=== PATIENT | female | born 1950 | race Caucasian/White ===

== ENCOUNTER 2025-05-17 09:26 | Outpatient (AMB) | payer BC, SELFPAY ==
--- NOTE | 2025-05-17 09:38 | A.OFFPC_ITS ---
Vital Signs 05/17/25 09:39 Height 5 ft 4 in Weight 168 lb 2 oz BMI 28.9 BP 124/76 Blood Pressure Location Lt brachial Position Sitting Respiration 16 Pulse 71 Pulse Source Pulse Oximeter Temp 97.3 F Temp Source Temporal Artery Scan Pulse Oximetry (%) 97 Oxygen Delivery Method Room Air Intake Visit Reasons: follow liver care, reestablish care Pitch Filler Required: No Accompanied by: Self / Same As Patient Allergies alendronate sodium Adverse Reaction (Severe, Verified 05/17/25 09:38) severe transaminitis Medication List - Last Reconciled 05/17/25 by Darlene Gold MD amoxicillin 2,000 mg PO ONCE aspirin (Adult Low Dose Aspirin) 81 mg PO DAILY doxycycline hyclate 20 mg PO BID estradiol 0.01%(0.1mg/gram) 1 g vaginal 2XW lisinopril 10 mg PO DAILY loteprednol etabonate 0.25% 2 drps ophthalmic (eye) QID jiucfmnk-vfp-kvfz-FA-vit K-lut 4 mg iron-200 mcg-25 mcg (Centrum Minis Women 50 Plus) tabs PO Tobacco use date assessed: 05/17/25 Fall risk assessment: 1 Fall in past year Last assessed Fall Risk: 05/17/25 Dental Screening Dental Screen Date: 05/17/25 Did you have a dental visit in the last 12 months?: Yes Did you have a dental problem in the last 6 months where you did not have access to dental care?: No Was dental information given to patient?: Patient has dentist HPI HPI Comments History of Present Illness Details The patient is a 75 year old female presenting to [facility]. Elevated liver enzymes: The patient has a history of elevated liver enzymes, which were normalizing at her last visit. This was attributed to a alendronate use. The patient was also on atorvastatin which was held during this period. She is scheduled for a follow-up with her farm labor contractor SHANNA Duran at [facility] this week. Hypertension: The patient has a history of hypertension. She currently takes lisinopril 10 mg daily (two 5 mg tablets). She reports not monitoring her blood pressure regularly at home. She has seen [facility] cardiology in the past for HTN and mild CAD. Blepharitis: The patient reports a history of blepharitis, which began with itchy eyes. She is currently taking low-dose doxycycline 20 mg as prescribed by her display trimmer to suppress it. History of Basal Cell Carcinoma: The patient reports having a basal cell carcinoma removed from her left outer leg by a terry cloth cutter hand. 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 Coronary artery disease Generalized anxiety disorder Transaminitis Primary hypertension Surgical History (Updated 05/17/25 @ 07:57 by Darlene Gold MD) S/P hip replacement H/O dilation and curettage H/O varicose vein procedure Hx of tonsillectomy History of colonoscopy (~10/04/23) Family History (Updated 05/17/25 @ 07:54 by Darlene Gold MD) Other Osteoporosis Social History Housing: House Patient Tobacco Use Status: Never used Tobacco e-Cigarette/Vaping Use: Never Used Current occupational status: retired Questionnaire PHQ-9 Over the last 2 weeks, how often have you been bothered by any of the following problems? 1. Little interest or pleasure in doing things: not at all 2. Feeling down, depressed, or hopeless: not at all 3. Trouble falling or staying asleep, or sleeping too much: not at all 4. Feeling tired or having little energy: not at all 5. Poor appetite or overeating: not at all 6. Feeling bad about yourself - or that you are a failure or have let yourself or your family down: not at all 7. Trouble concentrating on things, such as reading the newspaper or watching television: not at all 8. Moving or speaking so slowly that other people could have noticed. Or the opposite - being so fidgety or restless that you have been moving around a lot more than usual: not at all 9. Thoughts that you would be better off or of hurting yourself in some way: not at all Total score: 0 Depression Screening Interpretation: Negative Depression Screening Done: Yes 17669 - PHQ-9 Billing: Yes Source: Developed by Drs. Wali Krishnamurthy, Gissel Manjarrez, Quintin Interiano and colleagues, with an educational freddie from [employer]. AUDIT C Alcohol Use Questionnaire (AUDIT-C) 1. How often do you have a drink containing alcohol?: 2-4 times a month 2. How many drinks containing alcohol do you have on a typical day when you are drinking?: 1 or 2 3. How often do you have six or more drinks on one occasion?: Never Total Score: 2 Review of Systems Narrative Review of Systems - General: Denies fatigue or sluggishness. - Eyes: Reports history of itchy eyes, consistent with blepharitis. - Abdominal: Denies abdominal pain. - Neurological: Denies current memory lapses or losing track of time. Physical exam (Primary Care) Vital Signs: Last Vital Signs Temp 97.3 F 05/17/25 09:39 Pulse 71 05/17/25 09:39 Resp 16 05/17/25 09:39 BP 124/76 05/17/25 09:39 Pulse Ox 97 05/17/25 09:39 Oxygen Delivery Method Room Air 05/17/25 09:39 BMI result Body Mass Index 28.9 Tobacco/Smoking Status: Tobacco use Status Tobacco use date assessed 05/17/25 05/17/25 09:48 Patient Tobacco Use Status Never used Tobacco 05/17/25 09:48 e-Cigarette/Vaping Use Never Used 05/17/25 09:48 PHQ-9: PHQ-9 Score PHQ-9: Total score 0 05/17/25 09:48 Depression Screening Interpretation: Negative Narrative Physical Exam - Gen: NAD -Respiratory: Lungs were clear to auscultation. - Cardiovascular: Auscultation revealed a normal rhythm with a soft murmur. - Neck: Auscultation of carotids revealed no bruits. - Abdomen: soft, non-tender to palpation with normal bowel sounds. - Extremities: no edema bilaterally Coding Level of Care Code Est Pt Level 4 (56957) Complex visit Add On G2211 Diagnoses Primary hypertension I10 Coronary artery disease involving [place] coronary artery of [place] heart without angina pectoris I25.10 Coronary Disease-Associated Artery/Lesion type: [place] artery [place] vs. transplanted heart: [place] heart Associated angina: without angina Transaminitis R74.01 Additional Codes PHQ-9 - 85694 - PHQ-9 Billing: Yes ([id number]) Assessment & Plan Assessment & Plan (1) Primary hypertension: Code(s): I10 - Essential (primary) hypertension Category: Medical (2) Coronary artery disease: Code(s): I25.10 - Atherosclerotic heart disease of [place] coronary artery without angina pectoris Category: Medical Qualifiers: Coronary Disease-Associated Artery/Lesion type: [place] artery [place] vs. transplanted heart: [place] heart Associated angina: without angina Qualified Code(s): I25.10 - Atherosclerotic heart disease of [place] coronary artery without angina pectoris (3) Transaminitis: Code(s): R74.01 - Elevation of levels of liver transaminase levels Category: Medical Plan Assessment and Plan 1. Re-establishment of care - I will request her records from her previous specialists, including cardiology and gastroenterology. 2. Elevated liver enzymes/Hypercholesterolemia - The patient's liver enzymes had been normalizing after discontinuing atorvastatin and alendronate -repeat LFTS 3. Hypertension - The patient requires a refill of her lisinopril 10 mg daily (two 5 mg tablets). - The patient was advised to check her blood pressure at home at least once a week. 4. Blepharitis - The patient will continue taking low-dose doxycycline 20 mg as prescribed by her display trimmer. 5. Preventative Care - She will schedule an annual physical/wellness visit for three months from now. Plan - Orders placed for fasting cholesterol profile and comprehensive liver panel - Patient advised to monitor blood pressure weekly. Patient Instructions - Please get fasting blood work done. This includes a cholesterol panel, so do not eat or drink anything but water for 8-12 hours before the test. Orders: Orders Comprehensive Met. Panel Today I10 - Essential (primary) hypertension, I25.10 - Atherosclerotic heart disease of [place] coronary artery without angina pectoris Gamma Glutamyl Transpeptidase Today R74.01 - Elevation of levels of liver transaminase levels Lipid Panel Today I10 - Essential (primary) hypertension, I25.10 - Atherosclerotic heart disease of [place] coronary artery without angina pectoris Medications: New lisinopril 10 mg (2 x 5 mg) PO DAILY 180 tabs 3RF 90 days
[2025-05-17 09:39] VITALS: BP 124/76; PULSE 71; RESP 16; TEMP 36.3; O2SAT 97; BMI 28.9
== END 2025-05-17 10:28 | disposition home or self-care (01) ==
LOC: HO.HMCHD 09:27
PROVIDERS: PCP Internal Medicine; Visit Provider Internal Medicine
DX: I10 Essential (primary) hypertension (principal); I25.10 Atherosclerotic heart disease of native coronary artery without angina pectoris; R74.01 Elevation of levels of liver transaminase levels

== ENCOUNTER → 2025-05-17 09:26 | Outpatient (BNVA) | payer BC, SELFPAY | PROVIDERS: PCP Internal Medicine; Visit Provider Internal Medicine | DX: I10 Essential (primary) hypertension (principal); I25.10 Atherosclerotic heart disease of native coronary artery without angina pectoris; R74.01 Elevation of levels of liver transaminase levels | CPT/HCPCS: 96127 ==